=== PATIENT | male | born 1970 | race Caucasian/White ===

== ENCOUNTER 2017-06-06 10:51 | Day surgery (SDC) | payer BC ==
--- NOTE | 2017-05-23 06:51 | HP ---
AMENDED REPORT NOW INCLUDES COSIGNER DESIGNATION - ESIGNED BEFORE ADJUSTMENTS CC: Alan Art MD; [facility] in [place] * PREOPERATIVE HISTORY AND PHYSICAL: DATE OF ADMISSION: 06/06/17 This patient is scheduled for Same-Day Surgery admission by Dr. Art, on . ATTENDING SURGEON: Alan Art MD * (dictated by Jeane Sapp NP). CHIEF COMPLAINT: Left inguinal hernia. HISTORY OF PRESENT ILLNESS: The patient is a 46-year-old male known to Dr. Art status post laparoscopic sleeve gastrectomy in June 2013. More recently, he presented with a new onset of left inguinal hernia. The patient describes digging a post hole approximately 3 weeks ago, and he experienced pain and bulging in the left groin. He is able to reduce the bulge. He denies any signs or symptoms to suggest incarceration or strangulation of the left inguinal hernia. Dr. Art examined the patient and notes an obvious left inguinal hernia that is reducible and minimally tender. Dr. Art has discussed the findings with the patient and has recommended laparoscopic left inguinal hernia repair with mesh as a same-day surgery procedure. Dr. Art discussed the nature of the surgical procedure, the relevant risks, benefits and alternatives and today I reviewed the expected postoperative care and recovery. The patient has had a chance to ask questions and stated that he understands the information and is satisfied with the answers given to his questions. He will sign surgical consent on the day of surgery. PAST MEDICAL HISTORY: Generally healthy, no acute or chronic conditions. PAST SURGICAL HISTORY: Laparoscopic sleeve gastrectomy in June [address] Art; carpal tunnel release bilaterally in the 1960s. MEDICATIONS: 1. Omeprazole 20 mg p.o. daily in the morning. 2. Centrum multivitamin daily. 3. Vitamin B12 1000 mcg daily. 4. Citracal Petites with vitamin D daily. 5. Cialis 2.5 mg p.r.n. ALLERGIES: No known drug allergies. No latex or food allergies. FAMILY HISTORY: Mother alive and well. Father with a history of lung and brain cancer. No known anesthesia complications, bleeding tendencies, or clotting disorders in the family. 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 He quit smoking 10 years ago. He drinks alcohol socially and denies the use of other substances. REVIEW OF SYSTEMS: Constitutional: No fevers or chills. Excessive fatigue. Endocrine: No diabetes or thyroid disease. Hematologic: No easy bruising or bleeding. No history of deep vein thrombosis or pulmonary embolism. Respiratory: No dyspnea on exertion or cough. Cardiovascular: No anginal chest pain or palpitations. Gastrointestinal: No nausea, vomiting, diarrhea, or constipation. No change in bowel habits. Genitourinary: No dysuria or hematuria. Musculoskeletal: No chronic back or joint pain. Neurologic: No headache or blurred vision or history of seizures. General: No previous anesthesia complications. PHYSICAL EXAMINATION GENERAL SURVEY: The patient is a 46-year-old male, well developed, well nourished, in no acute distress. VITAL SIGNS: Height 68 inches, weighs 203 pounds, body mass index 30.9. Blood pressure 130/70, pulse 74 and regular, respiratory rate 16, temperature 97.9 tympanic. HEENT: Benign. NECK: Supple. No cervical lymphadenopathy. BACK: No CVA tenderness. LUNGS: Breath sounds bilaterally clear and equal. HEART: Regular rate and rhythm. No murmurs or rubs appreciated. ABDOMEN: Multiple well-healed surgical scars. Active bowel sounds. Nondistended, nontender throughout. No obvious masses, organomegaly, or evidence of incisional or umbilical hernia. Inguinal exam as done by Dr. Art revealed an obvious left inguinal hernia that is reducible and minimally tender. No evidence of right inguinal hernia on palpation. Testes are normally descended without lesions. RECTAL: Deferred. EXTREMITIES: Warm without edema or skin ulceration. NEUROLOGIC: Alert and oriented x3. Steady gait. SKIN: Warm, dry, intact. IMPRESSION: Left inguinal hernia. PLAN: Same-Day Surgery admission to Dr. Art's service on 06/06/17 , for a laparoscopic left inguinal hernia repair with mesh. JEANE SAPP, JUAN CARLOS [id number]/[facility] #: [id number] NAY
[~2017-06-06 10:51] MED LIST: Buffered Lidocaine 0.9% SYRIN* 5 ML/SYR SYRINGE INTRADERM ONE
[2017-06-06] MEDS ORDERED: Buffered Lidocaine 0.9% SYRIN* 5 ML/SYR SYRINGE ONE (11:09)
[2017-06-06] MEDS ORDERED: ceFAZolin 2 GM PREMIX (*) 50 ML IVPB ONE (11:09)
[2017-06-06] MEDS ORDERED: Famotidine IV* 10 MG/ML 2 ML (20 mg) ONE (11:09)
[2017-06-06] MEDS: Famotidine IV* 10 MG/ML 2 ML (20 mg) IV ONE ×2 (11:29→11:30)
[2017-06-06] MEDS ORDERED: fentaNYL* 50 MCG/ML 2 ML VIAL (100 MCG VIAL) ONE ×2 (11:53→13:58)
[2017-06-06] MEDS ORDERED: Midazolam* 1 MG/ML 5 ML VIAL (5 MG) ONE (11:53)
[2017-06-06] MEDS ORDERED: Ketorolac INJ* 30 MG/ML 1 ML VIAL ONE (11:54)
[2017-06-06] MEDS ORDERED: Lidocaine 2% PF * 5 ML VIAL ONE (11:54)
[2017-06-06] MEDS ORDERED: Dexamethasone IV* 4 MG/ML 1 ML (4 MG) ONE (11:54)
[2017-06-06] MEDS ORDERED: Ondansetron INJ* 2 MG/ML VIAL ONE (11:54)
[2017-06-06] MEDS ORDERED: Propofol* 10 MG/ML 20 ML BTL IV PUSH ONE (11:54)
[2017-06-06] MEDS ORDERED: Bupivacaine 0.25% SDV* 30 ML ONE (13:14)
[2017-06-06] MEDS ORDERED: Acetaminophen TAB* 325 MG PO PRN (14:14)
[2017-06-06] MEDS ORDERED: DiMENhydriNATE IV* 50 MG/ML VIAL IV PUSH PRN (14:14)
[2017-06-06] MEDS ORDERED: oxyCODONE TAB* 5 MG TAB PO PRN (14:14)
[2017-06-06] MEDS ORDERED: HYDROmorphone INJ* 1 MG/ML CARPUJECT SYRINGE IV PRN (14:14)
[2017-06-06] MEDS ORDERED: Rocuronium* 10 MG/ML VIAL ONE (14:19)
[2017-06-06] MEDS ORDERED: oxyCODONE/Acetamin 5/325 MG* TAB PO PRN (15:37)
[2017-06-06] MEDS ORDERED: oxyCODONE TAB* 5 MG TAB ONE (16:06)
[2017-06-06 16:16] VITALS: BP 135/75
--- NOTE | 2017-07-05 06:35 | OP ---
CC: [facility] OPERATIVE REPORT: DATE OF OPERATION: 06/06/17 DATE OF : 66 SURGEON: Alan Art MD. AGILE QA TESTER: MIRIAM Gomez. ANESTHESIOLOGIST: Dr. Cortes. ANESTHESIA: General anesthesia. PRE-OP DIAGNOSIS: Left inguinal hernia. POST-OP DIAGNOSIS: Left inguinal hernia. OPERATIVE PROCEDURE: Laparoscopic left inguinal hernia repair with mesh. ESTIMATED BLOOD LOSS: Minimal blood loss. FLUIDS: Minimal crystalloid fluid given. SPECIMEN: None. DESCRIPTION OF PROCEDURE: The patient identified was in the preoperative area, marked, and consent signed. He was taken back to the operating room and placed on the operating table in a supine posit ion. Preoperative antibiotics were given. Sequential devices were placed on bilateral lower extremi ties. General anesthesia was induced. The patient's abdomen was clipped of hair and he was prepped , and a time-out was performed. An infraumbilical incision was made. This was deepened down to the anterior fascia on the right. T his was incised, but we could not successfully appreciate the posterior fascia. We moved over to th e right side and attempted to find area of the rectus muscle with the investing fascia. We did find this and incised over this and found the rectus pillar, but realized we were far too lateral. This is likely given the patient's body habitus and redundant skin. We moved closer to the midline and again made an incision, more inferior now, into the area closer to the midline on the left and were able to get into the rectus muscle closer to the midline. This was retracted laterally and we could open up into the preperitoneal plain. A blunt dissection was carried out here and we placed a lapa roscope through this site within the 12 mm trocar. Camera was used to bluntly dissect some of the p reperitoneal space and then two 5 mm trocars were placed in the lower midline. With the trocars in, we could better free up the space. We freed up Wale's ligament bilaterally, noted the epigastric vessels and kept them anteriorly, and freed up Bogros space laterally. We reduced the lipoma of the cord. The peritoneum did not seem to extend into the inguinal canal and we skeletonized the inguin al contents. No significant direct hernia was identified. Yet this space was cleared up with the f ull myopectineal orifice cleared out. We placed a 3D Max mesh for the left into the space and unfur led it and tacked it with capture device. The mesh laid in the appropriate positioning without wrink ling and without stretching. The preperitoneal plane was allowed to collapse. Hemostasis was excel lent. Trocars were removed under direct vision. We closed the anterior fascia laterally on the lef t side that had been mistakenly opened and also the midline extending towards our initial incision s ite. The wound was then irrigated and we reapproximated the skin with 4-0 Monocryl subcuticular sut ures. Steri- Strips and sterile dressings were applied. The patient tolerated the procedure well a nd was awoken up in the OR and transferred to the PACU in stable condition. [id number]/[facility] #: [id number]
== END 2017-06-06 16:27 | disposition home or self-care (01) ==
LOC: OR 10:51
PROVIDERS: ATTEND Surgery
DX: K40.90 Unilateral inguinal hernia, without obstruction or gangrene, not specified as recurrent (principal); Z87.891 Personal history of nicotine dependence
CPT/HCPCS: A9270-GY; C1781; J0690; J1100; J1885; J2250; J2405; J2704; J3010

== ENCOUNTER 2017-10-03 11:08 | Day surgery (SDC) | payer BC ==
--- NOTE | 2017-09-18 07:04 | HP ---
CC: [facility] in [place], [place] * ADMISSION HISTORY AND PHYSICAL: DATE OF ADMISSION: 10/03/17 ATTENDING SURGEON: Dr. Alan Art * (DICTATED BY MIRIAM HIGGINS) CHIEF COMPLAINT: Right inguinal hernia. HISTORY OF PRESENT ILLNESS: This is a 47-year-old male, well-known to our practice after having undergone laparoscopic sleeve gastrectomy in 2012 and more recently, a laparoscopic left inguinal herniorrhaphy with mesh by Dr. Art on 06/06/17. The patient states that within a month following his left hernia repair, he noted the presence of a bulge in the right groin. That bulge has persisted, with intermittent pain and discomfort, particularly related to activity. He was seen in July by Dr. Art and then again more recently last week, to confirm that there is indeed a right-sided palpable inguinal hernia, which is reducible. There is no evidence of recurrent left inguinal hernia. Dr. Art has discussed with him the indications, risks, benefits, and approaches for repair. The patient would to proceed as scheduled with laparoscopic repair, right inguinal hernia with mesh. He understands that he has a higher chance of converting to an open procedure based on his previous surgery. PAST MEDICAL HISTORY: Morbid obesity (weight loss of approximately 100 pounds following sleeve gastrectomy in 2012); his weight has been more or less stable in recent years. He also has a history of GERD. PAST SURGICAL HISTORY: Previous surgeries include laparoscopic sleeve gastrectomy, 2012; laparoscopic left inguinal hernia repair with mesh, 06/06/17 ; bilateral carpal tunnel release in the ; removal of right shoulder bone spur and tonsillectomy remotely. No reported surgical or anesthesia complications. CURRENT MEDICATIONS: 1. Omeprazole 20 mg once daily. 2. Cialis 2.5 mg once daily p.r.n. 3. Multivitamin once daily. 4. Vitamin B12 1000 mcg once daily. 5. Citracal with D, 2 tablets once daily. DRUG ALLERGIES: None known. FAMILY HISTORY: Negative for anesthesia problems, bleeding or clotting disorders. SOCIAL HISTORY: The patient lives with his partner. 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 He is a former smoker of 1 pack per day for 10 years, but quit 10 years ago. He drinks less than or equal to 3 drinks per day. He occasionally smokes marijuana, but not daily. No other recreational drug use reported. REVIEW OF SYSTEMS: General: No recent constitutional symptoms or acute illnesses other than mild nonproductive cough over the last few days. His weight has been stable. Cardiovascular: No chest pain, palpitations, history of hypertension. He does have a history of heart murmur, which is noted intermittently on exam. Respiratory: Past smoking history as noted. Mild URI symptoms. We did discuss signs and symptoms to be aware of prior to surgery that would prompt a primary care followup and potential rescheduling for surgery. No shortness of breath. GI: GERD symptoms, well-controlled with omeprazole. No lower GI symptoms. He has not had a screening colonoscopy as of yet. : No problems reported. Endocrine: No diabetes or thyroid dysfunction. PHYSICAL EXAMINATION GENERAL: Well-nourished, well-developed male, in no acute distress VITAL SIGNS: Height 68 inches, weight 205 pounds, BMI of 31. Temperature 98.3 , blood pressure 130/84, pulse 72, respirations 16. HEENT: Pupils are equal, round, and reactive. EOMs intact. No conjunctival pallor. Oropharynx: Teeth in good repair. Few missing teeth. No intraoral lesions. NECK: No lymphadenopathy, thyromegaly or masses. LUNGS: Clear to auscultation. No rales or wheezes. HEART: Regular rate and rhythm. No murmur appreciated. ABDOMEN: Well-healed laparoscopic incisions from prior surgeries. Soft and nontender to palpation. No palpable masses or organomegaly. Right inguinal hernia as noted per Dr. rAt's exam, not repeated today. GENITALIA: Not examined. Testes normal by Dr. Art's exam. RECTAL: Not done. BACK: No spinous process or CVA tenderness. EXTREMITIES: No edema. NEUROLOGICAL: Grossly intact. SKIN: Warm and dry. No suspicious rashes or lesions. IMPRESSION: Right inguinal hernia. PLAN/RECOMMENDATIONS: Laparoscopic repair of right inguinal hernia with mesh. MIRIAM HIGGINS [id number]/[facility] #: [id number] MTDD
[2017-10-03] MEDS ORDERED: ceFAZolin 2 GM PREMIX (*) 2 GM/50 ML BAG IVPB ONE (11:24)
[2017-10-03] MEDS ORDERED: Buffered Lidocaine 0.9% SYRIN* 5 ML/SYR SYRINGE ONE (11:24)
[2017-10-03] MEDS ORDERED: Bupivacaine 0.25% SDV* 30 ML ONE (16:00)
[2017-10-03] MEDS ORDERED: Propofol* 10 MG/ML 20 ML BTL IV PUSH ONE (16:14)
[2017-10-03] MEDS ORDERED: fentaNYL* 50 MCG/ML 2 ML VIAL (100 MCG VIAL) ONE ×2 (16:14→17:07)
[2017-10-03] MEDS ORDERED: Midazolam* 1 MG/ML 2 ML VIAL (2 MG) ONE ×2 (16:15→16:22)
[2017-10-03] MEDS ORDERED: Atracurium* 10 MG/ML 10 ML VIAL ONE (16:18)
[2017-10-03] MEDS ORDERED: Dexamethasone IV* 4 MG/ML 1 ML (4 MG) ONE (16:43)
[2017-10-03] MEDS ORDERED: fentaNYL* 50 MCG/ML 2 ML VIAL (100 MCG VIAL) IV PRN (17:00)
[2017-10-03] MEDS ORDERED: Naloxone* 0.4 MG/ML 1 ML VIAL IV PRN (17:00)
[2017-10-03] MEDS ORDERED: Ondansetron INJ* 2 MG/ML VIAL IV PRN (17:00)
[2017-10-03] MEDS ORDERED: DiMENhydriNATE IV* 50 MG/ML VIAL IV PUSH PRN (17:00)
[2017-10-03] MEDS ORDERED: Ondansetron INJ* 2 MG/ML VIAL ONE (17:24)
[2017-10-03] MEDS ORDERED: Ketorolac INJ* 30 MG/ML 1 ML VIAL ONE (17:24)
--- NOTE | 2017-10-03 17:26 | BRIEFOPN ---
Brief Operative Note - Surgery Procedures: Procedures Pre-OP Diagnoses: Right inguinal hernia Post-op Diagnosis: same Procedure: Laparoscopic Right inguinal hernia repair with mesh Surgeon: Kaelyn Asst: Shanelle Anethesia: MATI Gutierrez EBL: 50cc IVF: 1800cc LR Specimen: none Drains: none
[2017-10-03] MEDS ORDERED: oxyCODONE/Acetamin 5/325 MG* TAB ONE (19:26)
[2017-10-03 19:46] VITALS: BP 133/77
--- NOTE | 2017-10-04 09:53 | OP ---
DATE OF OPERATION: 10/03/17 - [facility] DATE OF : 66 SURGEON: Alan Art MD RESTAURANT LINE COOK: MIRIAM Serra ANESTHESIOLOGIST: Jovanni Gutierrez MD ANESTHESIA: General. PRE-OP DIAGNOSIS: Right inguinal hernia. POST-OP DIAGNOSIS: Right inguinal hernia. OPERATIVE PROCEDURE: Laparoscopic right inguinal hernia with mesh. SPECIMEN: None. ESTIMATED BLOOD LOSS: Minimal blood loss. FLUIDS: 1800 cc of crystalloid fluid given. DRAINS: None. DESCRIPTION OF PROCEDURE: The patient identified in the preoperative area. He was marked. Consent was signed. Exam was performed. The patient was then brought to the operating room, placed on the operating table in the supine position. Preoperative antibiotics were given. Sequential devices were placed on bilateral lower extremities. General anesthesia was induced. The patient's lower abdominal hair was clipped and the area was prepped and draped in a standard surgical fashion. A time-out was performed. An infraumbilical incision was made. This was deepened down to the anterior fascia on the right, which was incised. A rectus muscle was retracted laterally and entry into the preperitoneal plane was made. Finger dissection was then performed until we could place the 12-mm port without difficulty. Once this was in place, blunt camera dissection was utilized right down to the pubic symphysis. We never need did see the previous mesh placement. We placed two 5-mm trocars in the lower midline. Next, a blunt dissection was carried out exposing Wale's ligament on the right extending this, maintaining epigastric vessels superiorly. No direct hernia was identified. Space of Bogros' was cleared off and the spermatic structures were then isolated, these were skeletonized. A small tongue of peritoneum that was the sac was bluntly dissected off these structures and placed posteriorly. Lipoma of the cord was also reduced. Next, a medium Bard 3DMax mesh was then placed into the preperitoneal plane, allowed to unfurl and tacked to Wale's ligament also laterally and just above the pubic symphysis. The mesh was not wrinkled and not taut. The preperitoneal plane was then allowed to collapse. Trocar was removed under direct vision. The anterior fascia was reapproximated at the umbilical port site and all 3 skin incisions were reapproximated with 4-0 Monocryl followed by sterile dressing. [id number]/[facility] #: [id number] MTDD
== END 2017-10-03 19:45 | disposition home or self-care (01) ==
LOC: OR 11:08
PROVIDERS: ATTEND Surgery
DX: K40.90 Unilateral inguinal hernia, without obstruction or gangrene, not specified as recurrent (principal); Z87.891 Personal history of nicotine dependence; R01.1 Cardiac murmur, unspecified; Z98.84 Bariatric surgery status
CPT/HCPCS: A9270-GY; C1781; J0690; J1100; J1885; J2250; J2405; J2704; J3010